=== PATIENT | female | born 1980 | race American Indian/Alaskan Native ===

== ENCOUNTER 2016-11-07 08:36 | Inpatient (IN) | payer OTHER, MEDICAID ==
[2016-11-07] MEDS ORDERED: BRETHINE IVP PRN (11:33)
[2016-11-07] MEDS ORDERED: BRETHINE SUB-Q PRN (11:33)
[2016-11-07] MEDS ORDERED: NARCAN 0.4 MG/1 ML IV PRN (11:33)
[2016-11-07] MEDS ORDERED: XYLOCAINE 2% INFILTRATI ONE (11:33)
[2016-11-07] MEDS ORDERED: ePHEDrine SULFATE IV PRN ×2 (11:33→23:27)
[2016-11-07] MEDS ORDERED: MINERAL OIL PO PRN (11:33)
[2016-11-07] MEDS ORDERED: ZOFRAN IV PRN (11:33)
[2016-11-07] MEDS ORDERED: SUBLIMAZE IV PRN (11:33)
[2016-11-07] MEDS ORDERED: PHENERGAN PO PRN (11:33)
[2016-11-07] MEDS ORDERED: PITOCin/NS 20 UNIT/1000ML DRIP 20 UNITS/1,000 ML BAG IV SCH (12:00)
[2016-11-07] MEDS ORDERED: PITOCin/NS 30 UNIT/500ML 30 UNITS/500 ML BAG IV SCH (12:00)
[2016-11-07 12:17] LABS: Hematocrit 37.5 % (30.3-42.9); Hemoglobin 12.1 gm/dl (10.1-14.3); Mean Corpuscular HGB Conc 32 % (30-34); Mean Corpuscular Hemoglobin 27 pg (28-32); Mean Corpuscular Volume 84 fl (79-97); Platelet Count 326 K/mm3 (140-440); Red Blood Count 4.47 M/mm3 (3.65-5.03); Red Cell Distribution Width 14.4 % (13.2-15.2); White Blood Count 10.6 K/mm3 (4.5-11.0)
--- NOTE | 2016-11-07 12:18 | History and Physical Report ---
History of Present Illness Date of examination: 11/07/16 Date of admission: 11/07/16 08:36 Chief complaint: Induction of labor for poly and elevated BP History of present illness: This is a 36 yo at 39+ weeks admitted to labor and delivery for polyhydramnios and elevated BP. course AMA s/p MFM following obesity HSV@ no lesions present hx of std trich treated in hx of cla and jp s/p treatment in left polycystic kidney - will alert peds Polyhydramnoios labs O+ antibody neg H/H 1.9/36.4 pap normal Rubella IMM RPRP neg urine culture neg Hep neg HIV neg HSV2 + plt 290 jp pos chlam pos trich Pos 08/30/16 chlam neg jp neg DM 77 nl ( early) H/H 11.3/34.2 DM 98 PLT 312 US 07/26/16 hebert EGA 24+3 5 weeks EFW 64% limited anatomy polycystic kidney US 09/27/16 hebert EGA 33+3 weeks EFW 2412 0% polycystic kidney RPR neg chlam neg GBS neg Past History Past Medical History: asthma [employer] History: abnormal PAP smear, herpes Family/Genetic History: diabetes, other (hypercholesterolemia ) Social history: single. denies: smoking, alcohol abuse, prescription drug abuse - Obstetrical History Expected Date of Delivery: 11/12/16 Actual Gestation: 39 Week(s) 2 Day(s) : 3 Para: 1 Hx # Term Pregnancies: 1 Number of Pregnancies: 0 Spontaneous Abortions: 1 Induced : 0 Number of Living Children: 1 Medications and Allergies Allergies Allergy/AdvReac Type Severity Reaction Status Date / Time peanut Allergy Unknown Verified 10/15/16 15:48 Home Medications Medication Instructions Recorded Confirmed Last Taken Type Tablet 1 tab PO DAILY 11/07/16 11/07/16 11/07/16 07:45 History 1 tab valACYclovir [Valtrex] 500 mg PO BID 11/07/16 11/07/16 11/07/16 08:00 History 500 mg Active Meds: Active Medications Fentanyl (Sublimaze) 100 mcg IV Q2H PRN PRN Reason: Labor Pain Lactated Ringer's (Lactated Ringers) 1,000 mls @ 125 mls/hr IV DIRECT [place] Oxytocin/Sodium Chloride (Pitocin/Ns 20 Unit/1000ml Drip) 20 units in 1,000 mls @ 125 mls/hr IV DIRECT [place] Oxytocin/Sodium Chloride (Pitocin/Ns 30 Unit/500ml) 30 units in 500 mls @ 1 mls /hr IV TITR [place]; 1 MILLIUNITS/MIN PRN Reason: Protocol Oxytocin/Sodium Chloride (Pitocin/Ns 30 Unit/500ml) 30 units in 500 mls @ 0 mls /hr IV TITR [place]; As Directed PRN Reason: Protocol Mineral Oil (Mineral Oil) 30 ml PO QHS PRN PRN Reason: Constipation Naloxone HCl (Narcan 0.4 Mg/1 Ml) 0.1 mg IV Q2MIN PRN PRN Reason: Res Rate </= 8 or 02 SAT < 92% Ondansetron HCl (Zofran) 4 mg IV Q8H PRN PRN Reason: Nausea And Vomiting Promethazine HCl (Phenergan) 25 mg PO Q6H PRN PRN Reason: Nausea And Vomiting Review of Systems Constitutional: weight gain Eyes: deferred Ears, nose, mouth and throat: deferred Breasts: deferred Gastrointestinal: no nausea, no vomiting Genitourinary: deferred Rectal Exam: deferred Integumentary: deferred - Vital Signs Vital signs: Vital Signs Temp Pulse Resp BP Pulse Ox 98.1 F 118 H 20 125/76 96 11/07/16 09:46 11/07/16 09:46 11/07/16 09:46 11/07/16 09:46 11/07/16 09:46 Temp Pulse Resp BP Pulse Ox 98.1 F 93 H 20 121/76 96 11/07/16 09:46 11/07/16 11:59 11/07/16 09:46 11/07/16 11:59 11/07/16 09:46 - Physical Exam Breasts: Positive: normal Cardiovascular: Regular rate, Normal S1, Normal S2 Lungs: Positive: Clear to auscultation, Normal air movement Abdomen: Positive: normal appearance, soft, normal bowel sounds Genitourinary (Female): Positive: normal external genitalia, normal perenium Vulva: both: normal Vagina: Positive: normal moisture. Negative: ulceration Cervix: Negative: lesion Uterus: Positive: normal size, enlarged Results All other labs normal. Assessment and Plan A/P HD#1 IOL for poly and elevated BP PIH w/u sent close attention to BP consider Pitocin for IOL GBS neg no need for abx expect vaginal delivery
[2016-11-07] MEDS: LACTATED RINGERS 1,000 ML IV SCH ×3 (12:23→21:55)
[2016-11-07 12:28] LABS: Alanine Aminotransferase 14 units/L (7-56); Lactate Dehydrogenase 185 units/L (91-180); Uric Acid 3.6 mg/dL (3.5-7.6)
[2016-11-07 12:58] LABS: Bacteria,Urine 1+ /HPF (Negative); Bilirubin,Urine NEG (Negative); Blood,Urine NEG (Negative); Ketones,Urine NEG (Negative); Leukocyte Esterase,Urine MOD (Negative); Mucus,Urine 2+ /HPF; Nitrite,Urine NEG (Negative); Protein,Urine <15 mg/dL mg/dL (Negative); Urobilinogen,Urine < 2.0 mg/dL (<2.0)
[2016-11-07] MEDS: PITOCin/NS 30 UNIT/500ML 30 UNITS/500 ML BAG IV SCH ×5 (13:24→17:00)
[2016-11-07] MEDS ORDERED: ePHEDrine SULFATE ONE (22:50)
--- NOTE | 2016-11-07 23:26 | Anesthesia Consultation ---
Anesthesia Consult and Med Hx Date of service: 11/07/16 - Airway Anesthetic Teeth Evaluation: Good ROM Head & Neck: Adequate Mental/Hyoid Distance: Adequate Intubation Access Assessment: Possibly Difficult - Pre-Operative Health Status ASA Pre-Surgery Classification: ASA3, Emergency Proposed Anesthetic Plan: Epidural, Spinal - Pulmonary Hx Asthma: Yes (uses inhaler as needed; no use in approx 2 yrs) COPD: No Hx Pneumonia: No - Cardiovascular System Hx Hypertension: Yes (gestational only) - Central Nervous System Hx Seizures: No Hx Psychiatric Problems: No - Endocrine Hx Renal Disease: No Hx End Stage Renal Disease: No Hx Hypothyroidism: No Hx Hyperthyroidism: No - Hematic Hx Anemia: No Hx Sickle Cell Disease: No - Other Systems Hx Alcohol Use: No Hx Obesity: Yes
[2016-11-07] MEDS ORDERED: BENADRYL IV PRN (23:27)
[2016-11-07] MEDS ORDERED: fentaNYL-BUPIV 2 MCG/ML-0.125% 200 MCG/100 ML BAG EPIDURAL SCH (23:45)
[2016-11-07] MEDS ORDERED: ePHEDrine SULFATE IM ONE (23:46)
[2016-11-08] MEDS ORDERED: NORCO 5/325 PO PRN (03:32)
[2016-11-08] MEDS ORDERED: TYLENOL PO PRN (03:32)
[2016-11-08] MEDS ORDERED: ZOFRAN IV PRN (03:32)
[2016-11-08] MEDS ORDERED: DULCOLAX PR PRN (03:32)
[2016-11-08] MEDS ORDERED: DERMOPLAST TP PRN (03:32)
[2016-11-08] MEDS ORDERED: TUCKS PAD TP PRN (03:32)
[2016-11-08] MEDS ORDERED: PERCOCET 5/325 PO PRN (03:32)
[2016-11-08] MEDS ORDERED: BENADRYL PO PRN (03:32)
[2016-11-08] MEDS ORDERED: PHENERGAN PO PRN (03:32)
[2016-11-08] MEDS ORDERED: PHENERGAN PR PRN (03:32)
[2016-11-08] MEDS ORDERED: LANSINOH TP PRN (03:32)
[2016-11-08] MEDS ORDERED: MILK OF MAGNESIA PO PRN (03:32)
[2016-11-08] MEDS ORDERED: ANUCORT-HC PR PRN (03:32)
--- NOTE | 2016-11-08 03:41 | Procedure Note ---
OB Delivery Note - Delivery Date of Delivery: 11/08/16 Estimated blood loss: other (400 cc) - Vaginal Delivery presentation: vertex Delivery position: OA Intrapartum events: none Delivery induction: oxytocin Delivery monitor: external FHT, external uterine Route of delivery: Delivery placenta: spontaneous Delivery cord: nuchal cord, 3 umbilical vessels Episiotomy: none Delivery laceration: none Delivery comments: Patient was noted to be c/c/0 and commneced to pushing a viable male infant weight 3405g 7 pound 8 oz with Apgars 7 and 9 at 307 a . A nuchal cord loose was reduced prior to shoulders delivered with ease. The cord was cut and clamped on placed on mothers chest. Placenta delivered at 315 intact with three vessel cord. no laceration no epitisiotomy. sponge count correct x 2. EBl 400 cc. Patient tolerated procedure and delivery well. - A Infant Gender: Male
[2016-11-08] MEDS ORDERED: PITOCin/NS 20 UNIT/1000ML DRIP 20 UNITS/1,000 ML BAG IV SCH (04:00)
[2016-11-08] MEDS ORDERED: SODIUM CHLORIDE FLUSH SYRINGE 10 ML IV NR (04:00)
[2016-11-08] MEDS ORDERED: SENOKOT S PO SCH (06:00)
[2016-11-08] MEDS: COLACE PO SCH ×2 (11:43→21:50)
[2016-11-08] MEDS: PRENATAL VITAMIN PO SCH (11:43)
[2016-11-08] MEDS: MOTRIN PO SCH ×4 (11:44→23:35)
[2016-11-08 15:41] LABS: Hematocrit 29.2 % (30.3-42.9); Hemoglobin 9.3 gm/dl (10.1-14.3)
[2016-11-09] MEDS ORDERED: M-M-R II VACCINE SUB-Q ONE (06:00)
[2016-11-09] MEDS ORDERED: BOOSTRIX IM ONE (06:05)
--- NOTE | 2016-11-09 08:08 | Progress Note ---
Assessment and Plan A: PPD#1 s/p at term, Asymptomatic anemia; left polycystic kidney P: Routine care. Anticipate discharge tomorrow. Subjective - Subjective Date of service: 11/09/16 Principal diagnosis: s/p at term Interval history: No overnight events. Pt reports that she feels constipated and would like medication to help her have a bowel movement. Patient reports: appetite normal, voiding normally, pain well controlled, ambulating normally, no nauseated : doing well Objective - Vital Signs Latest vital signs: Vital Signs Temp Pulse Resp BP 11/09/16 00:15 98.6 F 95 H 20 130/72 11/08/16 15:15 98.2 F 103 H 20 115/75 Intake and Output 11/08/16 11/09/16 11/09/16 22:59 06:59 14:59 Intake Total 600 120 Output Total 600 Balance 0 120 Intake: Oral 360 Intake, Free Water 240 120 Output: Urine 600 Void 600 Other: Total, Intake Amount 120 Total, Output Amount 600 # Voids Void 2 1 - Exam Breasts: Present: deferred Cardiovascular: Present: Regular rate Lungs: Present: Clear to auscultation Abdomen: Present: soft (obese) Uterus: Present: fundal height at umbilicus Extremities: Present: edema (trace ) - Labs Labs: Abnormal lab results 11/08/16 Range/Units 15:09 Hgb 9.3 L (10.1-14.3) gm/dl Hct 29.2 L D (30.3-42.9) %
--- NOTE | 2016-11-09 08:11 | Discharge Summary ---
Providers - Providers Date of Admission: 11/07/16 08:36 Date of discharge: 11/10/16 Attending physician: RADHIKA SORENSON MD Primary care physician: RADHIKA SORENSON MD Hospitalization Reason for admission: induction of labor, other (Gestational Hypertension ) Delivery: Procedure details: Spontaneous vaginal delivery; please see delivery note. Episiotomy: none Laceration: none Other procedures: none complications: none Discharge diagnosis: IUP at term delivered baby: male Hospital course: Pt underwent induction of labor and ultimately had a spontaneous vaginal delivery which she tolerated well. Her course was uncomplicated and she met discharge criteria on PPD#2. Condition at discharge: Stable Disposition: DISCHARGED TO HOME OR SELFCARE - Discharge Diagnoses (1) Term of male Status: Acute (2) Morbid obesity Status: Acute Qualifiers: Obesity type: O (3) Anemia affecting Status: Acute Plan - Discharge Medications Prescriptions: Ferrous Sulfate [Feosol 325 MG tab] 325 mg PO BID #60 tablet HYDROcodone/APAP 5-325 [[place] 5/325] 1 each PO Q6HR PRN #30 tablet PRN Reason: Pain Ibuprofen [Motrin] 600 mg PO Q6H PRN #30 tablet PRN Reason: Pain Vit-Fe Fumar-FA [ Vitamin] 1 tab PO QDAY #30 tablet - Provider Discharge Summary Activity: routine, no sex for 6 weeks, no heavy lifting 4 weeks, no strenuous exercise Diet: routine Instructions: routine Additional instructions: [] Smoking cessation referral if applicable(refer to patient education folder for contact #) [] Refer to [facility] Booklet Call your doctor immediately for: * Fever > 100.5 * Heavy vaginal bleeding ( >1 pad per hour) * Severe persistent headache * Shortness of breath * Reddened, hot, painful area to leg or breast * Drainage or odor from incision. * Keep incision clean and dry at all times and follow doctor's instructions regarding bathing/showering - Follow up plan Follow up: RADHIKA SORENSON MD [Primary Care Provider] - 12/06/16 ( exam )
[2016-11-09] MEDS ORDERED: MILK OF MAGNESIA PO PRN (09:30)
[2016-11-09] MEDS: COLACE PO SCH ×2 (10:03→23:52)
[2016-11-09] MEDS: PRENATAL VITAMIN PO SCH (10:03)
--- NOTE | 2016-11-09 10:25 | Progress Note ---
Subjective Date of service: 11/09/16 Principal diagnosis: s/p at term Interval history: 1st day after normal vaginal delivery Patient is in the bed, comfortable. Pain is well controlled with pain meds. Ambulated well. No residual neurological deficit. No anesthesia complications Objective - Constitutional Vitals: Vital Signs - 12hr 11/09/16 11/09/16 00:15 08:50 Temperature 98.6 F 98.2 F Pulse Rate [ 95 H 84 From Monitor] Respiratory 20 20 Rate Blood Pressure 130/72 122/74 [Left Arm] - Labs CBC & Chem 7: 11/08/16 15:09 11/07/16 11:30 Labs: Abnormal lab results 11/08/16 Range/Units 15:09 Hgb 9.3 L (10.1-14.3) gm/dl Hct 29.2 L D (30.3-42.9) %
[2016-11-09] MEDS: MOTRIN PO SCH ×3 (12:40→23:51)
[2016-11-10] MEDS: MOTRIN PO SCH ×2 (05:59→12:10)
[2016-11-10] MEDS: COLACE PO SCH (10:03)
[2016-11-10] MEDS: PRENATAL VITAMIN PO SCH (10:05)
[2016-11-10 14:51] VITALS: BP 116/68
== END 2016-11-10 23:09 | disposition home or self-care (01) | DRG 775 ==
LOC: LD 08:36 → OB 11-08 06:13
PROVIDERS: ADMIT Obstetrics & Gynecology; ATTEND Obstetrics & Gynecology
PROC: 10E0XZZ Delivery of Products of Conception, External Approach (ICD-10-PCS; principal; 2016-11-08)
PROC: 3E033VJ Introduction of Other Hormone into Peripheral Vein, Percutaneous Approach (ICD-10-PCS; 2016-11-08)
DX: O40.3XX0 Polyhydramnios, third trimester, not applicable or unspecified (principal); Z68.43 Body mass index [BMI] 50.0-59.9, adult; O99.214 Obesity complicating childbirth; O99.52 Diseases of the respiratory system complicating childbirth; O69.81X0 Labor and delivery complicated by cord around neck, without compression, not applicable or unspecified; O13.4 Gestational [pregnancy-induced] hypertension without significant proteinuria, complicating childbirth; O99.013 Anemia complicating pregnancy, third trimester; D64.9 Anemia, unspecified; E66.01 Morbid (severe) obesity due to excess calories; J45.909 Unspecified asthma, uncomplicated; Z3A.39 39 weeks gestation of pregnancy; Z37.0 Single live birth; O98.319 Other infections with a predominantly sexual mode of transmission complicating pregnancy, unspecified trimester; A56.8 Sexually transmitted chlamydial infection of other sites; A59.9 Trichomoniasis, unspecified; O98.219 Gonorrhea complicating pregnancy, unspecified trimester; O36.8990 Maternal care for other specified fetal problems, unspecified trimester, not applicable or unspecified
CPT/HCPCS: 36415; 81001; 82565; 83615; 84450; 84460; 84550; 85014; 85018; 85027; 86850; 86900; 86901; 90471; 90715; A6250; J2590; J3010; J7120

== ENCOUNTER 2017-03-25 05:40 | Emergency (ER) | payer OTHER, MEDICAID ==
[2017-03-25 07:17] VITALS: BP 138/98
[2017-03-25] MEDS ORDERED: FUL-GLO OP ONE (07:59)
[2017-03-25] MEDS ORDERED: TETRACAINE 0.5% OU ONE (08:00)
--- NOTE | 2017-03-25 08:48 | Emergency Department Report ---
[facility] Chief Complaint: Eye Problems Stated Complaint: EYE PAIN Duration: 1 Day Severity: mild Symptoms: Yes Eye Itching, Yes Eye Redness, Yes Eye Pain, Yes Mucous Drainage, Yes Contact Lens Use, No Purulent Drainage, No Blurred Vision, No Preceding URI , No H/O Allergic Rhinitis, No Trauma, No Fever, No Headache Other History: 36 year old female presents to ED with right eye pain, discharge , redness x1 day. patient is stable, neurologically intact and in no acute distress. patient deniess loss of vision. ED Review of Systems ROS: Stated complaint: EYE PAIN Other details as noted in HPI Constitutional: denies: chills, fever Eyes: eye pain, eye discharge. denies: vision change ENT: denies: ear pain, throat pain Respiratory: denies: cough, shortness of breath, wheezing Cardiovascular: denies: chest pain, palpitations Endocrine: no symptoms reported Gastrointestinal: denies: abdominal pain, nausea, diarrhea Genitourinary: denies: urgency, dysuria, discharge Musculoskeletal: denies: back pain, joint swelling, arthralgia Skin: denies: rash, lesions Neurological: denies: headache, weakness, paresthesias Psychiatric: denies: anxiety, depression Hematological/Lymphatic: denies: easy bleeding, easy bruising ED Past Medical Hx - Past Medical History Hx Hypertension: Yes (gestational only) Hx Congestive Heart Failure: No Hx Diabetes: No Hx Deep Vein Thrombosis: No Hx Renal Disease: No Hx Sickle Cell Disease: No Hx Seizures: No Hx Asthma: Yes (uses inhaler as needed; no use in approx 2 yrs) Hx COPD: No Hx HIV: No - Surgical History Past Surgical History?: No - Social History Smoking Status: Never Smoker Substance Use Type: None - Medications Home Medications: Home Medications Medication Instructions Recorded Confirmed Last Taken Type Tablet 1 tab PO DAILY 11/07/16 11/07/16 11/07/16 07:45 History 1 tab valACYclovir [Valtrex] 500 mg PO BID 11/07/16 11/07/16 11/07/16 08:00 History 500 mg Ferrous Sulfate [Feosol 325 MG tab] 325 mg PO BID #60 tablet 11/08/16 Unknown Rx HYDROcodone/APAP 5-325 [[place] 1 each PO Q6HR PRN #30 tablet 11/08/16 Unknown Rx 5/325] Ibuprofen [Motrin] 600 mg PO Q6H PRN #30 tablet 11/08/16 Unknown Rx Vit-Fe Fumar-FA [ 1 tab PO QDAY #30 tablet 11/08/16 Unknown Rx Vitamin] Erythromycin [Erythromycin Ophth 1 applic OD Q4H #1 tube 03/25/17 Unknown Rx Oint] Tobramycin 1 drop OD Q4H #1 bottle 03/25/17 Unknown Rx [facility] Exam - Exam General: Vital signs noted. No distress. Alert and acting appropriately. Eye Exam: Right Injection, Right EOMI, Right Mucous Discharge, Right Fluorescein Uptake (normal), Neither Chemosis (none), Neither Abnormal Pupil ( none), Neither Eye Foreign Body (none), Neither Lid Foreign Body (none), Neither Purulent Discharge, Neither Corneal Edema (none), Neither Photophobia ( none) HEENT: No Nasal Congestion, No Pharyngeal Erythema Remainder of HEENT: Normal Lungs: Yes Clear Lung Sounds, Yes Good Air Exchange, No Wheezes, No Stridor, No Cough, No Nasal Flaring, No Retractions, No Use of Accessory Muscles ED Course Vital Signs 03/25/17 07:12 Temperature 98.3 F Pulse Rate 93 H Blood Pressure 138/98 O2 Sat by Pulse 96 Oximetry ED Medical Decision Making - Medical Decision Making 36 year old female presents to ED with right eye bacterial conjunctivitis. patient has normal Wood's lamp examination. patient is stable, neurologically intact and in no acute distress. patient advised not to wear contacts until symptoms resolve and understands. patient given antibiotic eye drops prescription. Critical care attestation.: If time is entered above; I have spent that time in minutes in the direct care of this critically ill patient, excluding procedure time. ED Disposition Clinical Impression: Conjunctivitis Qualifiers: Conjunctivitis type: acute Acute conjunctivitis type: bacterial Laterality: right Qualified Code(s): H10.31 - Unspecified acute conjunctivitis, right eye Disposition: DC- TO HOME OR SELFCARE Is pt being admited?: No Does the pt Need Aspirin: No Condition: Stable Instructions: Conjunctivitis (ED) Prescriptions: Erythromycin [Erythromycin Ophth Oint] 1 applic OD Q4H #1 tube Tobramycin 1 drop OD Q4H #1 bottle Referrals: PRIMARY CARE,MD [Primary Care Provider] - 3-5 Days Forms: Work/School Release Form(ED)
== END 2017-03-25 09:04 | disposition home or self-care (01) ==
LOC: ED 05:40
DX: H10.31 Unspecified acute conjunctivitis, right eye (principal)
CPT/HCPCS: 99283

== ENCOUNTER 2019-04-12 03:18 | Emergency (ER) | payer OTHER ==
[2019-04-12 03:26] VITALS: BP 159/108
[2019-04-12] MEDS ORDERED: ULTRAM PO ONE (05:19)
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
== END 2019-04-12 06:42 | disposition home or self-care (01) ==
LOC: ED 03:18
DX: S16.1XXA Strain of muscle, fascia and tendon at neck level, initial encounter (principal); M25.512 Pain in left shoulder; I10 Essential (primary) hypertension; J45.909 Unspecified asthma, uncomplicated; Z91.010 Allergy to peanuts; V49.49XA Driver injured in collision with other motor vehicles in traffic accident, initial encounter; Y93.89 Activity, other specified; Y92.410 Unspecified street and highway as the place of occurrence of the external cause; Y99.8 Other external cause status
CPT/HCPCS: 72040